=== PATIENT | female | born 1985 | race Caucasian/White ===

== ENCOUNTER 2018-05-11 01:50 | Emergency (ER) | payer OTHER ==
[2018-05-11 01:58] VITALS: BP 126/89
--- NOTE | 2018-05-11 02:00 | EDPHY ---
H & P Stated Complaint: Left leg pain gradually worsening since sun. 10 wks Time Seen by Provider: 05/11/18 01:59 HPI/ROS: HPI CHIEF COMPLAINT: Left calf pain. 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 No abnormal swelling. The calf pain has been present for 24 hr. She is concerned she may have a DVT. No history of DVT or P E. No history of underlying clotting disorder. Denies any injury. Denies chest pain or shortness of breath or pleuritic pain. Past Medical History: Denies medical history Past Surgical History: Denies surgical history Social History: He denies drugs alcohol tobacco. 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 Family History: Noncontributory ROS REVIEW OF SYSTEMS: 10 Systems were reviewed and negative with the exception of the elements mentioned in the history of present illness. Exam Constitutional appears well nontoxic no acute distress, triage nursing summary reviewed, vital signs reviewed, awake/alert. Eyes normal conjunctivae and sclera, EOMI, PERRLA. HENT normal inspection, atraumatic, moist mucus membranes, no epistaxis, neck supple/ no meningismus, no raccoon eyes. Respiratory clear to auscultation bilaterally, normal breath sounds, no respiratory distress, no wheezing. Cardiovascular rate normal, regular rhythm, no murmur, no edema, distal pulses normal. Gastrointestinal soft, non-tender, no rebound, no guarding, normal bowel sounds, no distension, no pulsatile mass. Genitourinary no CVA tenderness. Musculoskeletal left lower extremity neurovascular intact good distal pulse, good cap refill, no evidence of abnormal swelling. No significant tenderness on exam. no midline vertebral tenderness, full range of motion, no calf swelling, no tenderness of extremities, no meningismus, good pulses, neurovascularly intact. Skin pink, warm, & dry, no rash, skin atraumatic. Neurologic awake, alert and oriented x 3, AAOx3, moves all 4 extremities equally, motor intact, sensory intact, CN II-XII intact, normal cerebellar, normal vision, normal speech. Psychiatric normal mood/affect. Heme/Lymph/Immune no lymphadenopathy. Differential Diagnosis: Includes but is not limited to in a particular order DVT, Weller cyst, musculoskeletal strain, calf strain Medical Decision Making: Plan for this patient ultrasound left lower extremity. Rule out DVT. Re-evaluation: Ultrasound left lower extremity: Shows no evidence of DVT. Called to me by Dr. Oden. 0257: Updated patient. No evidence of DVT on ultrasound. Recommend warm compresses, anti-inflammatory pain medicine like Tylenol. Return if worsening pain, swelling, questions or concerns. Source: Patient - Personal History LMP (Females 10-55): EDC: 12/02/18 Current Tetanus Diphtheria and Acellular Pertussis (TDAP): Yes - Medical/Surgical History Hx Asthma: No Hx Chronic Respiratory Disease: No Hx Diabetes: No Hx Cardiac Disease: No Hx Renal Disease: No Hx Cirrhosis: No Hx Alcoholism: No Hx HIV/AIDS: No Hx Splenectomy or Spleen Trauma: No Other PMH: ACL surgery x 2, L ankle surgery - Social History Smoking Status: Never smoked Constitutional: Initial Vital Signs Temperature (C) 37 C 05/11/18 01:54 Heart Rate 80 05/11/18 01:54 Respiratory Rate 16 05/11/18 01:54 Blood Pressure 126/89 H 05/11/18 01:54 O2 Sat (%) 98 05/11/18 01:54 O2 Delivery Mode Room Air Allergies/Adverse Reactions: No Known Allergies Allergy (Unverified 05/11/18 01:54) Home Medications: Medication Instructions Recorded 05/11/18 Departure - Departure Disposition: Home, Routine, Self-Care Clinical Impression: Pain of left calf Condition: Good Instructions: Musculoskeletal Pain (ED) Additional Instructions: 1. Recommend warm compresses. 2. Recommend Tylenol. 3. Return if worsening symptoms. Referrals: NONE *PRIMARY CARE P,. [Primary Care Provider] - As per Instructions
== END 2018-05-11 03:09 | disposition home or self-care (01) ==
DX: M79.662 Pain in left lower leg (principal)

== ENCOUNTER → 2018-07-11 | Outpatient (CLI) | payer OTHER | LOC: FIMAGING 07:12 | PROVIDERS: ATTEND Obstetrics & Gynecology | DX: O99.282 Endocrine, nutritional and metabolic diseases complicating pregnancy, second trimester (principal); E03.9 Hypothyroidism, unspecified; Z3A.19 19 weeks gestation of pregnancy ==

== ENCOUNTER 2018-11-23 08:04 | Inpatient (IN) | payer OTHER ==
[2018-11-23] MEDS ORDERED: IBUPROFEN 600 MG TAB PO PRN (08:33)
[2018-11-23] MEDS ORDERED: OLIVE OIL 118 ML BTL MISC PRN (08:33)
[2018-11-23] MEDS ORDERED: MISOPROSTOL 200 MCG TAB PR PRN (08:33)
[2018-11-23] MEDS ORDERED: EPSOM SALT 454 GM TP PRN (08:33)
[2018-11-23] MEDS ORDERED: OXYTOCIN/RINGERS LACTATE 1,000 ML IV PRN (08:33)
[2018-11-23] MEDS ORDERED: PENICILLIN G POTASSIUM 5,000,000 UNIT in D5W 150 ML IV ONE (08:33)
[2018-11-23] MEDS ORDERED: LIDOCAINE 1% 300 MG/30 ML SDV SC PRN (08:33)
[2018-11-23 08:50] LABS: PLATELET COUNT 170 10^3/uL (150-400)
[2018-11-23] MEDS ORDERED: OXYTOCIN/RINGERS LACTATE 30 UNIT/500 ML BAG IV ONE (09:00)
[2018-11-23] MEDS: LR 1,000 ML IV PRN (09:22)
[2018-11-23] MEDS ORDERED: LR 500 ML IV PRN (09:52)
[2018-11-23] MEDS ORDERED: TERBUTALINE SULFATE 1 MG/ML VIAL ONE (10:00)
[2018-11-23] MEDS ORDERED: AMMONIA AROMATIC 1 EACH AMP IH ONE (10:00)
[2018-11-23] MEDS ORDERED: LIDOCAINE 1% 300 MG/30 ML SDV ONE (10:00)
[2018-11-23] MEDS ORDERED: OXYTOCIN/RINGERS LACTATE 500 ML IV SCH (10:00)
[2018-11-23] MEDS ORDERED: OLIVE OIL 118 ML BTL MISC ONE (10:00)
[2018-11-23] MEDS ORDERED: OXYTOCIN 10 UNIT/ML VIAL ONE (10:00)
[2018-11-23] MEDS ORDERED: MISOPROSTOL 200 MCG TAB ONE (10:01)
--- NOTE | 2018-11-23 10:45 | GHP ---
[f rep st] HISTORY AND PHYSICAL DATE OF ADMISSION: 11/23/2018 ADMISSION DIAGNOSIS: Intrauterine at 38-5/7 weeks' gestation and oligohydramnios. HISTORY OF PRESENT ILLNESS: The patient is a 33-year-old 2, para 0-0-1-0, who is 38-5/7 week s' gestation. Her estimated date of confinement is 12/02/2018, dated by a last menstrual period of 0 02/25/2018, consistent with a 1st-trimester ultrasound and the patient had a growth ultrasound yesterd ay for history of size greater than dates, an ultrasound which showed the baby to be in the 98th perc entile, however, TY was 5. Management options were reviewed with the patient and decision was made to proceed with an induction of labor for oligohydramnios past 37 weeks. The patient was examined in the office and she was 3 cm dilated, 80% effaced, and -2 station. The patient arrived this morning for Pitocin and induction of labor. status is reassuring. She has positive movement and no loss of fluid and no vaginal bleeding. She started having cramping. PAST MEDICAL HISTORY: Significant for history of migraines with aura, hypothyroidism. MEDICATIONS: vitamins, fish oil, magnesium and iron intake. She is also on levothyroxine 2 5 mcg. SURGICAL HISTORY: ACL repair x2, wisdom teeth extraction. ALLERGIES: No known drug allergies. SOCIAL HISTORY: Patient is . 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 She denies tobacco, a lcohol, or drug use. FAMILY MEDICAL HISTORY: Noncontributory. TEENAGE BABYSITTER HISTORY: Menarche age 13. Periods every 29-30 days and last 2-3 days. She is a 2, p haylee 0-0-1-0. In August 2017, she had either an early ectopic or a spontaneous . She was treated with methotrexate. However, imaging reviewed after the fact was suspicious of it jus t being a blighted ovum. Current has been uncomplicated with the exception of diagnosis of hypothyroidism in early , as well as 1 abnormal value on her glucose tolerance test, and ov erall normal blood sugars throughout the . She also had significant carpal tunnel syndrome throughout . The patient denies any history of any abnormal Pap smears or sexually transmit claudia diseases. REVIEW OF SYSTEMS: 10-point review of systems is negative. Positive movement. No loss of flu id. No vaginal bleeding. She denies any headache or changes in vision. PHYSICAL EXAMINATION: VITAL SIGNS: Stable. GENERAL APPEARANCE: Alert and oriented x3. MUSCULOSKE LETAL: Grossly intact. PSYCH: Grossly intact. NEURO: Grossly intact. HEART: Rate is regular. LUNGS: Clear to auscultation bilaterally. ABDOMEN: Gravid, nondistended, nontender. EXTREMITIES: Reveal no calf tenderness or edema. PELVIC: She was 3 cm dilated, 80% effaced, and -2 station. In ruben is in the vertex presentation. status is positive accelerations, no decelerations, and is reassuring. She is having contractions. LABS: Blood type B positive, antibody screen negative. Rubella immune. GBS positive. HBs Ag negative. HIV negative. Her 50 g glucose was 130. She had a repeat, which was 159. She had a 3 -hour glucose tolerance test which had 1 abnormal value, so she monitored her sugars during that. ASSESSMENT AND PLAN: A 33-year-old, 2, para 0-0-1-0, who is 38-5/7 weeks' gestation here for induction of labor of oligohydramnios. She has been started on Pitocin. She plans an epidural. /[id number]/MODL
--- NOTE | 2018-11-23 12:05 | OBPROG ---
Labor Progress Note Assessment/Plan: Assessment: Plan: Subjective/Intrapartum Course: 11/23/18 12:00 patient is doing well. pitocin is at 10 mu. feeling mild contractions. arom. small amount of clear fluid. second contraction after arom slightly stronger. status reassuring. Objective: 11/23/18 08:39 Patient ABO/Rh B POSITIVE 11/23/18 08:39 - SVE Dilation (cm): 3 Effacement (%): 80 Station: -2 Membranes: AROM Amniotic Fluid Color: Clear - Contraction Pattern Assessment Current Contraction Pattern: Irregular - FHR Assessment Felder FHR Pattern Variability: Moderate FHR Category: 1 - Procedures Non-surgical Procedures: Amniotomy - AP Antepartum Course: 11/23/18 12:01 care at [facility] in first trimester. dated by LMP equal to first trimester ultrasound. negative NIPT. diagnosed with hypothyroid in ,. started on levothyroxine. significant carpal tunnel in . efw 98%. elevated 50 gram. one abnormal value in 3 hour. has been checking sugars. most have been normal. Oxytocin Orders Assessment - Pre-Induction/Augmentation Assessment Gestational Age: 38 week(s) and 5 day(s) ICD10 Worksheet Patient Problems: Problems Problem Status Onset delivery delivered Acute Oligohydramnios Acute
[2018-11-23] MEDS: PENICILLIN G POTASSIUM 2,500,000 UNIT in D5W 150 ML IV SCH ×3 (13:28→21:17)
--- NOTE | 2018-11-23 13:58 | OBPROG ---
Labor Progress Note Assessment/Plan: Assessment: Plan: Subjective/Intrapartum Course: 11/23/18 12:00 patient is doing well. pitocin is at 10 mu. feeling mild contractions. arom. small amount of clear fluid. second contraction after arom slightly stronger. status reassuring. 11/23/18 13:57 patient breathing through contractions in the tub. status reassuring. regular contractions. pitocin is at 16 mu. considering an epidural. Objective: 11/23/18 08:39 Patient ABO/Rh B POSITIVE 11/23/18 08:39 - SVE Membranes: AROM Amniotic Fluid Color: Clear - Contraction Pattern Assessment Current Contraction Pattern: Regular - FHR Assessment Felder FHR Pattern Variability: Moderate FHR Category: 1 - Procedures Non-surgical Procedures: Amniotomy - AP Antepartum Course: 11/23/18 12:01 care at [facility] in first trimester. dated by LMP equal to first trimester ultrasound. negative NIPT. diagnosed with hypothyroid in ,. started on levothyroxine. significant carpal tunnel in . efw 98%. elevated 50 gram. one abnormal value in 3 hour. has been checking sugars. most have been normal. Oxytocin Orders Assessment - Pre-Induction/Augmentation Assessment Gestational Age: 38 week(s) and 5 day(s) ICD10 Worksheet Patient Problems: Problems Problem Status Onset Oligohydramnios Acute
[2018-11-23] MEDS ORDERED: PHENYLEPHRINE HCL 100 MCG/ML SYR ONE (15:16)
[2018-11-23] MEDS ORDERED: fentaNYL 2MCG/ML/BUP 0.1% RTU 100 ML BAG EP ONE (15:16)
[2018-11-23] MEDS ORDERED: BUPIVACAINE 0.25% 10 ML SDV ONE (15:16)
--- NOTE | 2018-11-23 15:47 | PREANESOB ---
Obstetric Pre-Anesthesia Info - General Info Proposed Procedure: HUMBERTO : 2 Para: 0 JENY: 12/02/18 Gestational Age: 38 week(s) and 5 day(s) - Info Status: Full Term - Labor Status Cervical Dilation per last OB SVE: 3 Station per last OB SVE: -2 Amniotic Fluid Color: Clear Indications for Labor Analgesia: Pain Control Labor Epidural: Proposed Anesthesia Allergies/Adverse Reactions: Allergy/AdvReac Type Severity Reaction Status Date / Time No Known Allergies Allergy Unverified 05/11/18 01:54 Home Medications: Medication Instructions Recorded 05/11/18 Visit Medications: Generic Name Dose Route Start Last Admin Trade Name Freq PRN Reason Stop Dose Admin Lactated Ringer's 1,000 mls @ 0 mls/hr 11/23/18 08:33 11/23/18 09:22 Lr IV 11/24/18 08:32 1,000 mls PRN PRN Administration SEE PROTOCOL CONDITIONS Protocol Per Protocol Oxytocin/Lactated Ringer's 1,000 mls @ 125 mls/hr 11/23/18 08:33 Pitocin 20 Units/Lr (Premix) IV PRN PRN Post bleeding Penicillin G Potassium 2,500, 155 mls @ 155 mls/hr 11/23/18 12:34 11/23/18 13 :28 000 unit/ Dextrose IV 12/23/18 12:33 155 mls Q4H TONG Administration Protocol Lactated Ringer's 500 mls @ 500 mls/hr 11/23/18 09:52 Lr IV 11/24/18 09:52 PRN PRN Maternal Hypotension Oxytocin/Lactated Ringer's 500 mls @ 0 mls/hr 11/23/18 10:00 11/23/18 09:30 Pitocin 30 Units/Lr (Premix) IV 05/22/19 09:59 500 mls CONT TONG Administration Protocol Per Protocol Ibuprofen 600 mg 11/23/18 08:33 Motrin PO ONCE PRN post , pain Lidocaine HCl 300 mg 11/23/18 08:33 Lidocaine Hcl 1% SC 05/22/19 08:32 ONCE PRN episiotomy Magnesium Sulfate 454 gm 11/23/18 08:33 Epsom Salt TP 05/22/19 08:32 Q1H PRN perineal discomfort Misoprostol 800 - 1,000 mcg 11/23/18 08:33 Cytotec [place] ONCE PRN Vaginal Atony/Bleeding Worcester Oil 118 ml 11/23/18 08:33 Sweet Oil MISC 05/22/19 08:32 ONCE PRN perineal massage Discontinued Medications Generic Name Dose Route Start Last Admin Trade Name Lauren PRN Reason Stop Dose Admin Ammonia (Aromatic Spirit) Confirm 11/23/18 10:00 Ammonia Aromatic Administered 11/23/18 10:01 Dose 1 each IH .STK-MED ONE Bupivacaine HCl Confirm 11/23/18 15:16 Sensorcaine 0.25% Sdv Administered 11/23/18 15:17 Dose 10 ml .ROUTE .STK-MED ONE Fentanyl/Bupivacaine HCl Confirm 11/23/18 15:16 Fentanyl/Bupivacaine/Ns 2 Mcg/Ml 0.1% (Premix Administered 11/23/18 15:17 Dose 100 ml EP .STK-MED ONE Penicillin G Potassium 5,000, 160 mls @ 160 mls/hr 11/23/18 08:33 11/23/18 09 :23 000 unit/ Dextrose IV 11/23/18 09:32 160 mls ONCE ONE Administration Protocol Lidocaine HCl Confirm 11/23/18 10:00 Lidocaine Hcl 1% Administered 11/23/18 10:01 Dose 300 mg .ROUTE .STK-MED ONE Misoprostol Confirm 11/23/18 10:01 Cytotec Administered 11/23/18 10:02 Dose 1,000 mcg .ROUTE .STK-MED ONE Worcester Oil Confirm 11/23/18 10:00 Sweet Oil Administered 11/23/18 10:01 Dose 118 ml MISC .STK-MED ONE Oxytocin Confirm 11/23/18 10:00 Pitocin Administered 11/23/18 10:01 Dose 40 unit .ROUTE .STK-MED ONE Oxytocin/Lactated Ringer's Confirm 11/23/18 09:00 Pitocin 30 Units/Lr (Premix) Administered 11/23/18 09:01 Dose 30 unit IV .STK-MED ONE Phenylephrine HCl Confirm 11/23/18 15:16 Neosynephrine Administered 11/23/18 15:17 Dose 1,000 mcg .ROUTE .STK-MED ONE Terbutaline Sulfate Confirm 11/23/18 10:00 Brethine Administered 11/23/18 10:01 Dose 1 mg .ROUTE .STK-MED ONE - Anesthesia History Response to Local Anesthetics: Normal Anesthesia & Operative History: No Prior Problems Family Anesthesia History: Negative - Vital Signs Height/Weight (Nursing): Height 160.02 cm Weight 90.718 kg - Focused Exam Neck exam: FROM Mallampati Score: Class 1 Mouth exam: normal dental/mouth exam Pulmonary: no respiratory distress Cardiovascular: regular rate and rhythym Labs: 11/23/18 08:39 Patient ABO/Rh B POSITIVE 11/23/18 08:39 - Plan Anesthetic Plan: HUMBERTO Consent Signed and on Chart: Yes Patient/Guardian Understands and Agrees to Plan: Yes Urgent/Emergent Case: Pricila stauffer completed preop but documented later for safe timely pt care
--- NOTE | 2018-11-23 16:43 | OBPROG ---
Labor Progress Note Assessment/Plan: Assessment: Plan: Subjective/Intrapartum Course: 11/23/18 12:00 patient is doing well. pitocin is at 10 mu. feeling mild contractions. arom. small amount of clear fluid. second contraction after arom slightly stronger. status reassuring. 11/23/18 13:57 patient breathing through contractions in the tub. status reassuring. regular contractions. pitocin is at 16 mu. considering an epidural. 11/23/18 16:29 patient was having contractions q 2 minutes so pitocin was turned down and then turned off as they continued to be q 2 minutes with no relaxation. patient received epidural. reexamined. patient is still 3 cm. IUPC placed. pitocin restarted. status reassuring. will reexaming in several hours after adequate contractions. Objective: 11/23/18 08:39 Patient ABO/Rh B POSITIVE 11/23/18 08:39 - SVE Dilation (cm): 3 Effacement (%): 80 Station: -2 Membranes: AROM Amniotic Fluid Color: Clear - Contraction Pattern Assessment Current Contraction Pattern: Regular - FHR Assessment Felder FHR Pattern Variability: Moderate FHR Category: 1 - Procedures Non-surgical Procedures: Amniotomy - AP Antepartum Course: 11/23/18 12:01 care at [facility] in first trimester. dated by LMP equal to first trimester ultrasound. negative NIPT. diagnosed with hypothyroid in ,. started on levothyroxine. significant carpal tunnel in . efw 98%. elevated 50 gram. one abnormal value in 3 hour. has been checking sugars. most have been normal. Oxytocin Orders Assessment - Pre-Induction/Augmentation Assessment Gestational Age: 38 week(s) and 5 day(s) ICD10 Worksheet Patient Problems: Problems Problem Status Onset Oligohydramnios Acute
--- NOTE | 2018-11-23 20:26 | OBPROG ---
Labor Progress Note Assessment/Plan: Assessment: Plan: Subjective/Intrapartum Course: 11/23/18 12:00 patient is doing well. pitocin is at 10 mu. feeling mild contractions. arom. small amount of clear fluid. second contraction after arom slightly stronger. status reassuring. 11/23/18 13:57 patient breathing through contractions in the tub. status reassuring. regular contractions. pitocin is at 16 mu. considering an epidural. 11/23/18 16:29 patient was having contractions q 2 minutes so pitocin was turned down and then turned off as they continued to be q 2 minutes with no relaxation. patient received epidural. reexamined. patient is still 3 cm. IUPC placed. pitocin restarted. status reassuring. will reexaming in several hours after adequate contractions. 11/23/18 20:24 patient feeling some cramping. pushed bolus button x 2. pitocin is at 14 mu. mvus 175. status reassuring. Will recheck in several hours after being adequate. 11/23/18 20:24 Objective: 11/23/18 08:39 Patient ABO/Rh B POSITIVE 11/23/18 08:39 - SVE Membranes: AROM Amniotic Fluid Color: Clear - Contraction Pattern Assessment Current Contraction Pattern: Regular - FHR Assessment Felder FHR Pattern Variability: Moderate FHR Category: 1 - Procedures Non-surgical Procedures: Amniotomy, IUPC - AP Antepartum Course: 11/23/18 12:01 care at [facility] in first trimester. dated by LMP equal to first trimester ultrasound. negative NIPT. diagnosed with hypothyroid in ,. started on levothyroxine. significant carpal tunnel in . efw 98%. elevated 50 gram. one abnormal value in 3 hour. has been checking sugars. most have been normal. Oxytocin Orders Assessment - Pre-Induction/Augmentation Assessment Gestational Age: 38 week(s) and 5 day(s) ICD10 Worksheet Patient Problems: Problems Problem Status Onset Oligohydramnios Acute
--- NOTE | 2018-11-23 23:02 | OBPROG ---
Labor Progress Note Assessment/Plan: Assessment: Plan: Subjective/Intrapartum Course: 11/23/18 12:00 patient is doing well. pitocin is at 10 mu. feeling mild contractions. arom. small amount of clear fluid. second contraction after arom slightly stronger. status reassuring. 11/23/18 13:57 patient breathing through contractions in the tub. status reassuring. regular contractions. pitocin is at 16 mu. considering an epidural. 11/23/18 16:29 patient was having contractions q 2 minutes so pitocin was turned down and then turned off as they continued to be q 2 minutes with no relaxation. patient received epidural. reexamined. patient is still 3 cm. IUPC placed. pitocin restarted. status reassuring. will reexaming in several hours after adequate contractions. 11/23/18 20:24 patient feeling some cramping. pushed bolus button x 2. pitocin is at 14 mu. mvus 175. status reassuring. Will recheck in several hours after being adequate. 11/23/18 20:24 11/23/18 22:56 patient still comfortable with epidural. Pitocin is at 20 mu. Mvu 140-170. have tried multiple position changes. sve 4-5/80/-2. status reassuring. will recheck in several hours. patient relieved she is making progress. Objective: 11/23/18 08:39 Patient ABO/Rh B POSITIVE 11/23/18 08:39 - SVE Dilation (cm): 4, 5 Effacement (%): 80 Station: -2 Membranes: AROM Amniotic Fluid Color: Clear - Contraction Pattern Assessment Current Contraction Pattern: Regular - FHR Assessment Eflder FHR Pattern Variability: Moderate FHR Category: 1 - Procedures Non-surgical Procedures: Amniotomy, IUPC - AP Antepartum Course: 11/23/18 12:01 care at [facility] in first trimester. dated by LMP equal to first trimester ultrasound. negative NIPT. diagnosed with hypothyroid in ,. started on levothyroxine. significant carpal tunnel in . efw 98%. elevated 50 gram. one abnormal value in 3 hour. has been checking sugars. most have been normal. Oxytocin Orders Assessment - Pre-Induction/Augmentation Assessment Gestational Age: 38 week(s) and 5 day(s) ICD10 Worksheet Patient Problems: Problems Problem Status Onset Oligohydramnios Acute
[2018-11-23] MEDS ORDERED: PHENYLEPHRINE HCL 100 MCG/ML SYR IVP PRN (23:05)
[2018-11-23] MEDS: fentaNYL 2MCG/ML/BUP 0.1% RTU 100 ML EP SCH (23:05)
[2018-11-23] MEDS ORDERED: NALOXONE HCL 0.4 MG/ML INJ IVP PRN (23:05)
[2018-11-23] MEDS ORDERED: ONDANSETRON 4 MG/2 ML VIAL IVP PRN (23:05)
[2018-11-23] MEDS ORDERED: fentaNYL 2MCG/ML/BUP 0.1% RTU 100 ML EP SCH (23:30)
[2018-11-23] MEDS ORDERED: LR 500 ML IV SCH (23:30)
[2018-11-24] MEDS ORDERED: ACETAMINOPHEN 500 MG TAB PO PRN (00:57)
[2018-11-24] MEDS: LR 1,000 ML IV PRN (00:59)
[2018-11-24] MEDS: PENICILLIN G POTASSIUM 2,500,000 UNIT in D5W 150 ML IV SCH ×4 (01:19→15:32)
--- NOTE | 2018-11-24 01:23 | OBPROG ---
Labor Progress Note Assessment/Plan: Assessment: Plan: Subjective/Intrapartum Course: 11/23/18 12:00 patient is doing well. pitocin is at 10 mu. feeling mild contractions. arom. small amount of clear fluid. second contraction after arom slightly stronger. status reassuring. 11/23/18 13:57 patient breathing through contractions in the tub. status reassuring. regular contractions. pitocin is at 16 mu. considering an epidural. 11/23/18 16:29 patient was having contractions q 2 minutes so pitocin was turned down and then turned off as they continued to be q 2 minutes with no relaxation. patient received epidural. reexamined. patient is still 3 cm. IUPC placed. pitocin restarted. status reassuring. will reexaming in several hours after adequate contractions. 11/23/18 20:24 patient feeling some cramping. pushed bolus button x 2. pitocin is at 14 mu. mvus 175. status reassuring. Will recheck in several hours after being adequate. 11/23/18 20:24 11/23/18 22:56 patient still comfortable with epidural. Pitocin is at 20 mu. Mvu 140-170. have tried multiple position changes. sve 4-5/80/-2. status reassuring. will recheck in several hours. patient relieved she is making progress. 11/24/18 01:20 patient still comfortable. was on hands and knees and multiple other positions. rn checked patient. 6-7/95/-2/ status reassuring. Objective: 11/23/18 08:39 Patient ABO/Rh B POSITIVE 11/23/18 08:39 - SVE Dilation (cm): 6, 7 Effacement (%): 90 Station: -2 Membranes: AROM Amniotic Fluid Color: Clear - Contraction Pattern Assessment Current Contraction Pattern: Regular - FHR Assessment Felder FHR Pattern Variability: Moderate FHR Category: 1 - Procedures Non-surgical Procedures: Amniotomy, IUPC - AP Antepartum Course: 11/23/18 12:01 care at [facility] in first trimester. dated by LMP equal to first trimester ultrasound. negative NIPT. diagnosed with hypothyroid in ,. started on levothyroxine. significant carpal tunnel in . efw 98%. elevated 50 gram. one abnormal value in 3 hour. has been checking sugars. most have been normal. Oxytocin Orders Assessment - Pre-Induction/Augmentation Assessment Gestational Age: 38 week(s) and 5 day(s) ICD10 Worksheet Patient Problems: Problems Problem Status Onset Oligohydramnios Acute
[2018-11-24] MEDS: fentaNYL 2MCG/ML/BUP 0.1% RTU 100 ML EP SCH (05:33)
--- NOTE | 2018-11-24 08:36 | OBPROG ---
Labor Progress Note Assessment/Plan: Assessment: Plan: Subjective/Intrapartum Course: 11/23/18 12:00 patient is doing well. pitocin is at 10 mu. feeling mild contractions. arom. small amount of clear fluid. second contraction after arom slightly stronger. status reassuring. 11/23/18 13:57 patient breathing through contractions in the tub. status reassuring. regular contractions. pitocin is at 16 mu. considering an epidural. 11/23/18 16:29 patient was having contractions q 2 minutes so pitocin was turned down and then turned off as they continued to be q 2 minutes with no relaxation. patient received epidural. reexamined. patient is still 3 cm. IUPC placed. pitocin restarted. status reassuring. will reexaming in several hours after adequate contractions. 11/23/18 20:24 patient feeling some cramping. pushed bolus button x 2. pitocin is at 14 mu. mvus 175. status reassuring. Will recheck in several hours after being adequate. 11/23/18 20:24 11/23/18 22:56 patient still comfortable with epidural. Pitocin is at 20 mu. Mvu 140-170. have tried multiple position changes. sve 4-5/80/-2. status reassuring. will recheck in several hours. patient relieved she is making progress. 11/24/18 01:20 patient still comfortable. was on hands and knees and multiple other positions. rn checked patient. 6-7/95/-2/ status reassuring. 11/24/18 08:33 patient complete and pushing. had temp to 100.1 got tylenol. pitocin has been at 24 mu. just increased to 26. status reassuring. patient having suprapubic pain and cramping which is interfering with her being able to push. just pushed bolus button. will try removing zamudio to see if bulb is contributing. Objective: 11/23/18 08:39 Patient ABO/Rh B POSITIVE 11/23/18 08:39 - SVE Dilation (cm): 10 Effacement (%): 100 Station: -1 Membranes: AROM Amniotic Fluid Color: Clear - Contraction Pattern Assessment Current Contraction Pattern: Regular - FHR Assessment Felder FHR Pattern Variability: Moderate FHR Category: 1 - Procedures Non-surgical Procedures: Amniotomy, IUPC - AP Antepartum Course: 11/23/18 12:01 care at [facility] in first trimester. dated by LMP equal to first trimester ultrasound. negative NIPT. diagnosed with hypothyroid in ,. started on levothyroxine. significant carpal tunnel in . efw 98%. elevated 50 gram. one abnormal value in 3 hour. has been checking sugars. most have been normal. Oxytocin Orders Assessment - Pre-Induction/Augmentation Assessment Gestational Age: 38 week(s) and 5 day(s) ICD10 Worksheet Patient Problems: Problems Problem Status Onset Oligohydramnios Acute
[2018-11-24] MEDS ORDERED: fentaNYL 100 MCG/2 ML INJ ONE ×4 (09:38→17:35)
[2018-11-24] MEDS ORDERED: CHLOROPROCAINE HCL 2% 400 MG/20 ML VIAL ONE (09:39)
[2018-11-24] MEDS ORDERED: AZITHROMYCIN IV 500 MG in NS 250 ML IV ONE (09:40)
[2018-11-24] MEDS ORDERED: ceFAZolin 2 GM/DEXTROSE 100 ML IV ONE ×2 (09:42→14:23)
[2018-11-24] MEDS ORDERED: LR 500 ML IV ONE (09:42)
--- NOTE | 2018-11-24 09:43 | OBPROG ---
Labor Progress Note Assessment/Plan: Assessment: Plan: Subjective/Intrapartum Course: 11/23/18 12:00 patient is doing well. pitocin is at 10 mu. feeling mild contractions. arom. small amount of clear fluid. second contraction after arom slightly stronger. status reassuring. 11/23/18 13:57 patient breathing through contractions in the tub. status reassuring. regular contractions. pitocin is at 16 mu. considering an epidural. 11/23/18 16:29 patient was having contractions q 2 minutes so pitocin was turned down and then turned off as they continued to be q 2 minutes with no relaxation. patient received epidural. reexamined. patient is still 3 cm. IUPC placed. pitocin restarted. status reassuring. will reexaming in several hours after adequate contractions. 11/23/18 20:24 patient feeling some cramping. pushed bolus button x 2. pitocin is at 14 mu. mvus 175. status reassuring. Will recheck in several hours after being adequate. 11/23/18 20:24 11/23/18 22:56 patient still comfortable with epidural. Pitocin is at 20 mu. Mvu 140-170. have tried multiple position changes. sve 4-5/80/-2. status reassuring. will recheck in several hours. patient relieved she is making progress. 11/24/18 01:20 patient still comfortable. was on hands and knees and multiple other positions. rn checked patient. 6-7/95/-2/ status reassuring. 11/24/18 08:33 patient complete and pushing. had temp to 100.1 got tylenol. pitocin has been at 24 mu. just increased to 26. status reassuring. patient having suprapubic pain and cramping which is interfering with her being able to push. just pushed bolus button. will try removing zamudio to see if bulb is contributing. 11/24/18 09:41 patient in excruciating pain in pubic symphysis and middle back. not able to push at all. discussion about options. she rebolused epidural with no improvement. discussed nitrous, having anesthesia rebolus epidural, and proceeding with a primary c section. patient wants to proceed with c section. anesthesia notified. consent signed. status reassuring. Objective: 11/23/18 08:39 Patient ABO/Rh B POSITIVE 11/23/18 08:39 - SVE Dilation (cm): 10 Effacement (%): 100 Station: -1 Membranes: AROM Amniotic Fluid Color: Clear - Contraction Pattern Assessment Current Contraction Pattern: Regular - FHR Assessment Felder FHR Pattern Variability: Moderate FHR Category: 1 - Procedures Non-surgical Procedures: Amniotomy, IUPC - AP Antepartum Course: 11/23/18 12:01 care at [facility] in first trimester. dated by LMP equal to first trimester ultrasound. negative NIPT. diagnosed with hypothyroid in ,. started on levothyroxine. significant carpal tunnel in . efw 98%. elevated 50 gram. one abnormal value in 3 hour. has been checking sugars. most have been normal. Oxytocin Orders Assessment - Pre-Induction/Augmentation Assessment Gestational Age: 38 week(s) and 5 day(s) ICD10 Worksheet Patient Problems: Problems Problem Status Onset Oligohydramnios Acute
[2018-11-24] MEDS ORDERED: ATROPINE SULFATE 1 MG/10 ML SYR ONE (09:54)
[2018-11-24] MEDS ORDERED: OXYTOCIN 100 UNITS/10 ML VIAL ONE (09:54)
[2018-11-24] MEDS ORDERED: PROPOFOL 200 MG/20 ML VIAL ONE (09:55)
[2018-11-24] MEDS ORDERED: METHYLERGONOVINE MAL 0.2 MG/ML INJ ONE ×4 (10:43→14:12)
[2018-11-24] MEDS ORDERED: HEMABATE 250 MCG/1 ML AMP IM ONE ×4 (10:46→13:00)
[2018-11-24] MEDS ORDERED: TRANEXAMIC ACID 1,000 MG/10 ML VIAL ONE (10:59)
[2018-11-24] MEDS ORDERED: *PREOP 1000MG*TRANEX ACID/NS 100 ML IV ONE (11:00)
[2018-11-24] MEDS ORDERED: DIPHENOXYLATE/ATROPINE LOMOTIL 1 TAB PO PRN (11:22)
[2018-11-24] MEDS ORDERED: PROMETHAZINE HCL 25 MG/ML INJ IVP PRN (11:23)
[2018-11-24] MEDS ORDERED: MAGNESIUM HYDROXIDE 30 ML UDCUP PO PRN (11:23)
[2018-11-24] MEDS ORDERED: LACTULOSE 20 GM/30 ML UDCUP PO PRN (11:23)
[2018-11-24] MEDS ORDERED: POLYETHYLENE GLYCOL 3350 17 GM PKT PO PRN (11:23)
[2018-11-24] MEDS ORDERED: BISACODYL 10 MG SUPP PR PRN (11:23)
[2018-11-24] MEDS ORDERED: MEPERIDINE 25 MG/0.5 ML AMP ONE (11:30)
[2018-11-24] MEDS ORDERED: OXYTOCIN/RINGERS LACTATE 1,000 ML IV SCH (11:30)
--- NOTE | 2018-11-24 11:40 | PDANEPAE ---
ANE History of Present Illness Called to OB for urgent C/S for failure to descend on induction with no previous medical history ANE Past Medical History - Cardiovascular History Hx Hypertension: No Hx Arrhythmias: No Hx Chest Pain: No Hx Coronary Artery / Peripheral Vascular Disease: No Hx CHF / Valvular Disease: No Hx Palpitations: No - Pulmonary History Hx COPD: No Hx Asthma/Reactive Airway Disease: No Hx Oxygen in Use at Home: No Hx Sleep Apnea: No - Endocrine History Hx Diabetes: No Hypothyroid: No Hyperthyroid: No - Renal History Hx Renal Disorders: No - Liver History Hx Hepatic Disorders: No - Neurological & Psychiatric Hx Hx Neurological and Psychiatric Disorders: No - Other Health History Other Health History: at 38 asnd 01/31 here for induction for presumed large baby and oligohydraminos. On PIT and had working epidural but started feeling pain this morning and asked to redose - Chronic Pain History Chronic Pain: No ANE Review of Systems Review of Systems: ANE Patient History - Allergies Allergies/Adverse Reactions: No Known Allergies Allergy (Unverified 05/11/18 01:54) - Home Medications Home Medications: 05/11/18 [Last Taken Unknown] - Smoking Hx Smoking Status: Never smoked ANE Labs/Vital Signs - Labs Result Diagrams: 11/23/18 08:39 - Vital Signs Height: 160.02 cm Weight: 90.718 kg ANE Physical Exam - Airway Neck exam: FROM Mallampati Score: Class 3 Mouth exam: normal dental/mouth exam - Pulmonary Pulmonary: no respiratory distress, no rales or rhonchi - Cardiovascular Cardiovascular: regular rate and rhythym, no murmur, rub, or gallop - ASA Status ASA Status: III ANE Anesthesia Plan Anesthesia Plan: spinal (Called in to bolus the epidural for C/S. Administered fent and chloroprocaine with very little relief. Discussed options and decided on spinal for primary C/S) Total IV Anesthesia: No
[2018-11-24] MEDS ORDERED: METOCLOPRAMIDE 10 MG/2 ML VIAL IVP PRN (11:43)
[2018-11-24] MEDS ORDERED: fentaNYL 100 MCG/2 ML INJ IVP PRN ×2 (11:43→16:14)
[2018-11-24] MEDS ORDERED: HYDROmorphONE/DILAUDID 1 MG/ML INJ IVP PRN (11:43)
[2018-11-24] MEDS ORDERED: PHENYLEPHRINE HCL 100 MCG/ML SYR IVP PRN (11:43)
[2018-11-24] MEDS ORDERED: MEPERIDINE 25 MG/0.5 ML AMP IVP PRN (11:43)
[2018-11-24] MEDS ORDERED: OXYCODONE/APAP 5/325 TAB PO PRN (11:43)
[2018-11-24] MEDS ORDERED: LABETALOL HCL 5 MG/ML 20 ML MDV IVP PRN (11:43)
--- NOTE | 2018-11-24 11:43 | POSTANESTH ---
Post Anesthetic Evaluation Cardiovascular Status: Normal, Stable, Other, See Comment (ST noted with hypertension after surgery. Presumed due to medication as all bleding stopped prior to close per surgery. HTN presumed effects of medication received per OB interop) Respiratory Status: Normal, Stable Level of Consciousness/Mental Status: Can Participate in Eval, Alert and Oriented Pain Control: Adequate, Prn Tx Ordered Nausea/Vomiting Control: Adequate, Prn Tx Ordered Complications Possibly Related to Anesthesia: None Noted (Patient denies HOPPER, palpitations, visual changes or chest discomfort. She is shaking uncontrollably despite 25mg demerol in post-op orders. Other than the shaking she is comfortable)
[2018-11-24] MEDS ORDERED: fentaNYL 100 MCG/2 ML INJ MISC ONE (11:50)
[2018-11-24] MEDS ORDERED: CHLOROPROCAINE HCL 2% 400 MG/20 ML VIAL NB ONE (11:51)
[2018-11-24] MEDS ORDERED: fentaNYL 2MCG/ML/BUP 0.1% RTU 100 ML EP SCH (12:00)
[2018-11-24] MEDS ORDERED: HYDROmorphONE/DILAUDID 6 MG/30 ML PCA IV PRN (13:17)
[2018-11-24] MEDS ORDERED: NALOXONE HCL 0.4 MG/ML INJ IVP PRN (13:17)
[2018-11-24] MEDS ORDERED: METHYLERGONOVINE MAL 0.2 MG/ML INJ IM ONE (14:23)
--- NOTE | 2018-11-24 14:39 | PDANEPAE ---
ANE History of Present Illness Post hemmorhage and large intrauterine clots. Asked to come bedside for sedation for manual extraction of clots ANE Past Medical History - Cardiovascular History Hx Hypertension: No Hx Arrhythmias: No Hx Chest Pain: No Hx Coronary Artery / Peripheral Vascular Disease: No Hx CHF / Valvular Disease: No Hx Palpitations: No - Pulmonary History Hx COPD: No Hx Asthma/Reactive Airway Disease: No Hx Oxygen in Use at Home: No Hx Sleep Apnea: No Sleep Apnea Screening Result - Last Documented: Negative - Endocrine History Hx Diabetes: No Hypothyroid: No Hyperthyroid: No - Renal History Hx Renal Disorders: No - Liver History Hx Hepatic Disorders: No - Neurological & Psychiatric Hx Hx Neurological and Psychiatric Disorders: No - Other Health History Other Health History: at 40 asnd 01/31 here for induction for presumed large baby and oligohydraminos. On PIT and had working epidural but started feeling pain this morning and asked to redose - Chronic Pain History Chronic Pain: No ANE Review of Systems Review of Systems: ANE Patient History - Allergies Allergies/Adverse Reactions: No Known Allergies Allergy (Unverified 05/11/18 01:54) - Home Medications Home Medications: 05/11/18 [Last Taken Unknown] - NPO status NPO Since - Liquids (Date): 11/24/18 NPO Since - Liquids (Time): 09:30 NPO Since - Solids (Date): 11/24/18 - Smoking Hx Smoking Status: Never smoked ANE Labs/Vital Signs - Labs Result Diagrams: 11/23/18 08:39 - Vital Signs Blood Pressure: 111/84 Respiratory Rate: 14 O2 Sat (%): 97 Height: 160.02 cm Weight: 90.718 kg ANE Physical Exam - Airway Neck exam: FROM Mallampati Score: Class 3 Mouth exam: normal dental/mouth exam - Pulmonary Pulmonary: no respiratory distress, no rales or rhonchi - Cardiovascular Cardiovascular: regular rate and rhythym, no murmur, rub, or gallop - ASA Status ASA Status: III, E ANE Anesthesia Plan Anesthesia Plan: GA with mask Total IV Anesthesia: Yes
--- NOTE | 2018-11-24 14:39 | POSTANESTH ---
Post Anesthetic Evaluation Cardiovascular Status: Normal, Stable Respiratory Status: Normal, Stable Level of Consciousness/Mental Status: Can Participate in Eval, Mildly Sleepy, Arousable Pain Control: Adequate, Prn Tx Ordered Nausea/Vomiting Control: Adequate, Prn Tx Ordered Complications Possibly Related to Anesthesia: None Noted
[2018-11-24] MEDS: fentaNYL 100 MCG/2 ML INJ IVP PRN ×2 (14:46→17:37)
[2018-11-24] MEDS: oxyCODONE IR 5 MG TAB PO PRN ×2 (14:58→19:25)
[2018-11-24] MEDS ORDERED: HYDROmorphONE/DILAUDID 2 MG/ML INJ IVP PRN (15:54)
[2018-11-24] MEDS ORDERED: KETOROLAC 30 MG/1 ML SDV ONE (16:26)
[2018-11-24] MEDS: KETOROLAC 30 MG/1 ML SDV IVP PRN ×2 (16:31→22:38)
--- NOTE | 2018-11-24 18:06 | OBPP ---
Progress Note Assessment/Plan: Assessment: I was called to the PACU to evaluate Litzy approximately 2 hours after we completed her section. At that time the nurses had had a recently fundal check with a large gush of approximately 200cc. Her uterus was tender and elevated to +2 and deviated to her left. Bedside US showed a large amount of clot and blood in the fundal aspect of the uterine cavity. Anesthesia paged and patient was given Propofol sedation. Bimanual performed with 500 of large organized clot removed, the right cornual region seeming more distended than the left, which was the case in the OR as well. All clot removed. Tomas in place. Gave additional doses of Methergine IM and Hemabate IM as well. US performed following bimanual that showed empty/contracted uterus. - Will hold NSAIDS for now. 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 - CBC now. - If further bleeding next step would be back to OR for D&C and Bakri placement. - Additional dose of 2g Ancef due to manipulation. Total EBL thus far: 1200 from OR, 200 from fundal check, 500 from my exam = 1900cc. Objective: 11/24/18 14:37 Patient ABO/Rh B POSITIVE 11/23/18 08:39 Temp Pulse Resp BP Pulse Ox 37.2 C 16 94/63 L 96 11/24/18 14:15 11/24/18 14:58 11/24/18 17:29 11/24/18 17:35 Uterine Position/Fundal Height: Umbilicus -2 Uterine Tone: Firm with Massage
[2018-11-24] MEDS: ACETAMINOPHEN 325 MG TAB PO SCH (19:54)
[2018-11-24] MEDS: LR 1,000 ML IV SCH (20:30)
[2018-11-25] MEDS: LR 1,000 ML IV SCH (00:56)
[2018-11-25] MEDS: ACETAMINOPHEN 325 MG TAB PO SCH ×5 (01:04→21:01)
[2018-11-25] MEDS: SENNOSIDES/DOCUSATE SODIUM TAB PO SCH ×3 (01:09→21:03)
[2018-11-25] MEDS: KETOROLAC 30 MG/1 ML SDV IVP PRN ×2 (04:34→10:07)
[2018-11-25] MEDS: oxyCODONE IR 5 MG TAB PO PRN ×4 (05:53→19:34)
[2018-11-25] MEDS: SIMETHICONE 80 MG TAB CHEW PO PRN ×2 (05:53→16:20)
[2018-11-25 06:35] LABS: PLATELET COUNT 106 10^3/uL (150-400)
--- NOTE | 2018-11-25 06:54 | PDPAINCON ---
Pain Management Consultation Patient referred by : Aamir - Subjective Pain is: under control Activity: able to ambulate - Objective Technique: continuous epidural (HUMBERTO converted for C/S (epidural fentanyl administered)) Catheter site: clean, dry, intact Sensory and motor exam: consistent with block (mild residual LLE weakness, improving) Vital signs: stable - Assessment/Plan Assessment/Plan: pain well-controlled, continue current mgmt (POD 1 s/p HUMBERTO converted for C/S. Patient did not receive epidural morphine. Her pain is well managed currently; may consider TAP blocks if uncontrolled.)
--- NOTE | 2018-11-25 08:44 | OBDEL ---
Info Type: Primary Presentation at Delivery: Vertex L&D Analgesia/Anesthesia Type: Epidural, Spinal GBS+: Yes Antibiotic Used for + GBS: Ampicillin Intrapartum Medications: Generic Name Dose Route Start Last Admin Trade Name Freq PRN Reason Stop Dose Admin Acetaminophen 1,000 mg 11/24/18 00:57 11/24/18 01:18 Tylenol PO 05/23/19 00:56 1,000 mg Q6 PRN Administration Pain, Mild/Fever, Can Take PO Acetaminophen 650 mg 11/24/18 14:23 11/25/18 08:00 Tylenol PO 05/23/19 14:22 650 mg Q6H TONG Administration Diphenoxylate HCl/Atropine 1 tab 11/24/18 11:22 11/24/18 13:04 Lomotil PO 05/23/19 11:21 1 tab QID PRN Administration Diarrhea/Loose Stools Fentanyl 50 mcg 11/24/18 14:40 11/24/18 17:37 Sublimaze IVP 12/04/18 14:39 50 mcg Q2HRS PRN Administration Pain, Severe Unable to Take PO Hydromorphone HCl 0 mg 11/24/18 13:17 11/24/18 13:34 Dilaudid Conference Planner IV 12/04/18 13:16 6 mg PRN PRN Administration Pain, Severe Unable to Take PO Protocol Oxytocin/Lactated Ringer's 500 mls @ 0 mls/hr 11/23/18 10:00 11/23/18 09:30 Pitocin 30 Units/Lr (Premix) IV 05/22/19 09:59 500 mls CONT TONG Administration Protocol Per Protocol Fentanyl/Bupivacaine HCl 100 mls @ 0 mls/hr 11/23/18 23:00 11/24/18 05:33 Fentanyl/Bupivacaine/Ns 2 Mcg/Ml 0.1% (Premix EP 12/03/18 22:59 100 mls CONT TONG Administration Protocol As Directed Lactated Ringer's 1,000 mls @ 125 mls/hr 11/24/18 10:00 11/25/18 00:56 Lr IV 11/25/18 09:59 1,000 mls CONT TONG Administration Ketorolac Tromethamine 30 mg 11/24/18 16:15 11/25/18 04:34 Toradol IVP 11/29/18 16:14 30 mg Q6HRS PRN Administration Pain, Moderate Oxycodone HCl 5 - 10 mg 11/24/18 11:23 11/25/18 05:53 Oxycodone Ir PO 12/04/18 11:22 5 mg Q4HRS PRN Administration Pain, Severe Able to Take PO Senna/Docusate Sodium 1 - 2 tab 11/24/18 21:00 11/25/18 01:09 Senokot-S PO 05/23/19 20:59 Not Given BID TONG Protocol Simethicone 80 mg 11/24/18 11:23 11/25/18 05:53 Mylicon PO 05/23/19 11:22 80 mg .TIDMEALS AND HS PRN Administration Gas Discontinued Medications Generic Name Dose Route Start Last Admin Trade Name Freq PRN Reason Stop Dose Admin Carboprost Tromethamine 250 mcg 11/24/18 13:00 11/24/18 13:45 Hemabate IM 11/24/18 13:01 250 mcg ONCE ONE Administration Chloroprocaine HCl 0 mg 11/24/18 11:51 11/24/18 20:05 Nesacaine-Mpf NB 11/24/18 11:52 Not Given ONCE ONE Fentanyl 100 mcg 11/24/18 11:50 11/24/18 20:11 Sublimaze MISC 11/24/18 11:51 Not Given ONCE ONE Fentanyl 25 - 100 mcg 11/24/18 16:14 11/24/18 16:21 Sublimaze IVP 11/24/18 17:15 50 mcg Q5M PRN Administration PACU, IMMEDIATE Pain control Hydromorphone HCl 0.2 - 0.4 mg 11/24/18 11:43 11/24/18 12:16 Dilaudid IVP 11/24/18 12:43 0.2 mg Q10M PRN Administration Pain, Severe Unable to Take PO Hydromorphone HCl 0.1 - 0.4 mg 11/24/18 15:54 11/24/18 16:06 Dilaudid IVP 11/24/18 16:54 0.2 mg Q10M PRN Administration PACU, PAIN Lactated Ringer's 1,000 mls @ 0 mls/hr 11/23/18 08:33 11/24/18 00:59 Lr IV 11/24/18 08:32 1,000 mls PRN PRN Administration SEE PROTOCOL CONDITIONS Protocol Per Protocol Oxytocin/Lactated Ringer's 1,000 mls @ 125 mls/hr 11/23/18 08:33 11/24/18 12: 00 Pitocin 20 Units/Lr (Premix) IV 1,000 mls PRN PRN Administration Post bleeding Penicillin G Potassium 5,000, 160 mls @ 160 mls/hr 11/23/18 08:33 11/23/18 09 :23 000 unit/ Dextrose IV 11/23/18 09:32 160 mls ONCE ONE Administration Protocol Penicillin G Potassium 2,500, 155 mls @ 155 mls/hr 11/23/18 12:34 11/24/18 15 :32 000 unit/ Dextrose IV 12/23/18 12:33 Not Given Q4H TONG Protocol Azithromycin 500 mg/ Sodium 255 mls @ 255 mls/hr 11/24/18 09:40 11/24/18 19: 53 Chloride IV 11/24/18 10:39 Not Given ONCE ONE Protocol Cefazolin Sodium/Dextrose 100 mls @ 200 mls/hr 11/24/18 09:42 11/24/18 09:53 Ancef IV 11/24/18 10:11 100 mls ONCALL ONE Administration Protocol Lactated Ringer's 500 mls @ 0 mls/hr 11/24/18 09:42 11/25/18 01:07 Lr IV 11/24/18 09:43 Not Given ONCE ONE As Directed Tranexamic Acid 1,000 mg/ 110 mls @ 660 mls/hr 11/24/18 11:00 11/25/18 01:08 Sodium Chloride IV 11/24/18 11:09 Not Given ONCALL ONE Cefazolin Sodium/Dextrose 100 mls @ 200 mls/hr 11/24/18 14:23 11/24/18 14:45 Ancef IV 11/24/18 14:52 100 mls ONCE ONE Administration Protocol Meperidine HCl 12.5 - 25 mg 11/24/18 11:43 11/24/18 11:45 Demerol IVP 11/24/18 12:43 25 mg Q10M PRN Administration shivering/rigors Methylergonovine Maleate 0.2 mg 11/24/18 14:23 11/24/18 14:14 Methergine IM 11/24/18 14:24 0.2 mg ONCE ONE Administration - Hospital Course Intrapartum: 11/23/18 12:00 patient is doing well. pitocin is at 10 mu. feeling mild contractions. arom. small amount of clear fluid. second contraction after arom slightly stronger. status reassuring. 11/23/18 13:57 patient breathing through contractions in the tub. status reassuring. regular contractions. pitocin is at 16 mu. considering an epidural. 11/23/18 16:29 patient was having contractions q 2 minutes so pitocin was turned down and then turned off as they continued to be q 2 minutes with no relaxation. patient received epidural. reexamined. patient is still 3 cm. IUPC placed. pitocin restarted. status reassuring. will reexaming in several hours after adequate contractions. 11/23/18 20:24 patient feeling some cramping. pushed bolus button x 2. pitocin is at 14 mu. mvus 175. status reassuring. Will recheck in several hours after being adequate. 11/23/18 20:24 11/23/18 22:56 patient still comfortable with epidural. Pitocin is at 20 mu. Mvu 140-170. have tried multiple position changes. sve 4-5/80/-2. status reassuring. will recheck in several hours. patient relieved she is making progress. 11/24/18 01:20 patient still comfortable. was on hands and knees and multiple other positions. rn checked patient. 6-7/95/-2/ status reassuring. 11/24/18 08:33 patient complete and pushing. had temp to 100.1 got tylenol. pitocin has been at 24 mu. just increased to 26. status reassuring. patient having suprapubic pain and cramping which is interfering with her being able to push. just pushed bolus button. will try removing zamudio to see if bulb is contributing. 11/24/18 09:41 patient in excruciating pain in pubic symphysis and middle back. not able to push at all. discussion about options. she rebolused epidural with no improvement. discussed nitrous, having anesthesia rebolus epidural, and proceeding with a primary c section. patient wants to proceed with c section. anesthesia notified. consent signed. status reassuring. Indications for Delivery: Oligohydramnios Vaginal Delivery - Labor and Delivery Onset of Contractions Date: 11/23/18 Onset of Contractions Time: 10:30 Amniotic Fluid Color: Clear Non-surgical Procedures: Amniotomy, IUPC Operative Report - Delivery Pre-op Diagnoses: IUP 38 6/7 weeks, oligohydramnios, arrest of descent, pain managment issues Post-op Diagnoses: same as preop plus post atony and hemorrhage, occiput posterior and nuchal cord History of Prior Section: No Nulliparous Prior to Delivery: Yes Indications for Current Section: Arrest of Descent Procedure: Unscheduled, Low Transverse Surgeon: Meghan Lester Pill Machine Operator: Josue Rutledge Anesthesiologist: Nayely Kowalski Complications: Nucal Cord, Post Hemorrhage EBL: 1200 [place] Data JENY: 12/02/18 Gestational Age: 39 week(s) and 0 day(s) Felder Delivery Date: 11/24/18 Delivery Time: 10:39 Sex of : Female Weight (gm): 3765 kg Score (1 Min): 8 Score (5 Min): 8 ICD10 Worksheet Patient Problems: Problems Problem Status Onset Oligohydramnios Acute
--- NOTE | 2018-11-25 10:01 | OBPP ---
Progress Note Assessment/Plan: Assessment: 1) 33 y/o G1 now P2 s/p 1LTCS secondary to arrest of descent POD #1 - pt is stable 2) PPH secondary to uterine atony - bleeding is appropriate 3) Anemia - pt is asymptomatic Plan: Continue routine post-op care Will discontinue Dilaudid CAMPUS REP and start po meds as ordered Will start iron, pt wants to taker her own Plan to discontinue zamudio since good UO this am and also discontinue IV this am Encourage ambulation May take shower later and remove dressing support prn Plan for d/c home in 48 hours 11/25/18 10:20 Subjective/ Course: 11/25/18 10:15 Pt seen and examined. She is sitting in the rocking chair and states pain is much better controlled and not using CAMPUS REP at this time. She has been getting Toradol. Pt is able to get OOB without feeling dizzy or lightheaded. She is gladys regular diet, zamudio in place, and no flatus yet. Denies any f/c/n/v/CP or SOB. Endorses lower extremity swelling, but no calf tenderness. Minimal lochia. Notes a small, tender "bump" right below umbilicus. BF is going well so far. Objective: 11/25/18 05:21 Patient ABO/Rh B POSITIVE 11/23/18 08:39 Temp Pulse Resp BP Pulse Ox 36.4 C 89 16 92/54 L 94 11/25/18 08:00 11/25/18 08:00 11/25/18 08:00 11/25/18 08:00 11/25/18 08:00 Uterine Position/Fundal Height: Umbilicus -2 Uterine Tone: Firm Physical Exam - Physical Exam General Appearance: WD/WN, alert, no apparent distress Respiratory: lungs clear, normal breath sounds Cardiac/Chest: regular rate, rhythm Abdomen: normal bowel sounds, soft, distended (mild), incision (C/D/I with dressing in place), dressing (C/D/I without shadowing), other (Small, 1 cm tender mass noted right below umbilicus: ?hernia-not able to be reduced; no ecchymosis) Extremities: non-tender, pedal edema Skin: warm/dry, pallor Neuro/Psych: alert, normal mood/affect, oriented x 3
--- NOTE | 2018-11-25 10:25 | GOP ---
[f rep st] OPERATIVE REPORT DATE OF OPERATION: 11/24/2018 SURGEON: Meghan Lester DO TRANSFER STATION ATTENDANT: Dr. Rutledge. ANESTHESIA: Spinal. ANESTHESIOLOGIST: Adenike Kowalski DO PREOPERATIVE DIAGNOSIS: Intrauterine at 38 and 6/7 weeks' gestation, group beta strep cult ure positive, arrest of descent, pain management issues. POSTOPERATIVE DIAGNOSIS: Intrauterine at 38 and 6/7 weeks' gestation, group beta strep cul ture positive, arrest of descent, pain management issues, atony, hemorrhage, ba by occiput posterior, nuchal cord x1. PROCEDURE PERFORMED: FINDINGS: Viable 8 pounds 3 ounce female in the occiput posterior presentation, delivered at 10:39 a.m. Apgars were 8 and 8. Normal ovaries uterus and tubes, and intact placenta with 3-vessel cord, atony. ESTIMATED BLOOD LOSS: 1200 cc. INDICATIONS: Patient is 33-year-old, 2, para 0-0-1-0 who has had routine care with [facility] since the 1st trimester. Patient has been following her blood sugars as she had a suspected large for gestational age baby and had an abnormal 50 g glucose, but only 1 abnormal nasir ue on her 3 hour glucose tolerance test. Her sugars have been well controlled in the . She had a growth ultrasound for this suspected large for gestational age at 39 weeks and 5 days. Baby w as noted to be in the 98 percentile, but amniotic fluid index was 5 cm. Management options were revi ewed with the patient. Decision was made to proceed to bring the patient in for induction of labor f or oligohydramnios. The patient was 3 cm dilated on arrival. She was started on Pitocin. Membranes were artificially ruptured. She requested and received an epidural, which for most of the labor pro vided adequate pain relief. An intrauterine pressure catheter was then placed and the patient has pr ogressed to complete dilation. When we tried to begin pushing, patient had significant pain superior to her pubic symphysis and in her spine. She was not able to effectively push. status remain ed reassuring. Management options were reviewed with the patient. Patient is in excruciating pain. We had attempted to be re-bolusing her epidural multiple times. We offered having Anesthesia re-arlyn us or place her epidural, nitrous oxide, or proceeding with a primary section as the baby's head was still very high. Patient elected to proceed with a primary section. Risks and lynda efits were reviewed with the patient and the patient was properly consented. DESCRIPTION OF PROCEDURE: Patient was taken to the operating room with intravenous fluids in place. A Tomas catheter was already in place. Her epidural was not working well after re-bolus, so she was received spinal which provided adequate pain relief. She was then placed on the operating room tabl e in the dorsal supine position with a leftward tilt and prepped and draped in the normal sterile fas hion. Anesthesia was assessed and found to be adequate. A Pfannenstiel skin incision was then made 2 fingerbreadths above the pubic symphysis. The incision was then carried through to the underlying layer of fascia with the Bovie. The fascia was then nicke d in the midline and the fascial incision was extended laterally. The superior aspect of the fascial incision was then grasped with a Placido, tented up, and the underlying rectus muscle dissected off b luntly with the Bovie. Attention was then turned to the inferior aspect of the fascial incision, whi ch in a similar fashion was grasped with a Placido, tented up, and the underlying rectus muscle dissec claudia off bluntly and with the Bovie. The rectus muscle was then in the midline. The perito neum was identified, tented up, and entered sharply with the Metzenbaum scissors. The incision was e xtended superiorly and inferiorly with excellent visualization of the bladder. The bladder blade was then inserted. The vesicouterine peritoneum was identified, tented up, and entered sharply with the Metzenbaum scissors. The incision was extended laterally and the bladder flap was created digitally . The bladder blade was then reinserted. The uterus was then incised in low transverse fashion with the scalpel. The uterine incision was ext ended laterally. The infant's head was then delivered through the incision. It was noted to be in t he occiput posterior presentation and nuchal cord x1 was delivered at the time of delivery. The viab le 8 pounds 3 ounce was delivered without difficulty. Delayed cord clamping x1 minute was per formed. The cord was then clamped x2 and cut, and cord blood was obtained, and the was handed off to a waiting nurse practitioner. The intact placenta with 3-vessel cord delivered without difficulty. The uterus was then exteriorize d and cleared of all clots and debris and wrapped in a moist laparotomy sponge. Pitocin was started. The tone was noted to be decreased. The bladder blade was then reinserted. The uterine incision w as closed with 0 Vicryl stitch in a running locked fashion. A second 0 Vicryl stitch was used to imb ricate the uterine incision. Patient was given a dose of Methergine, a dose of Hemabate, 1000 mcg of Cytotec per rectum, and tranexamic acid. Her tone did improve, but not to complete normal tone, but bleeding was noted to be minimal. The uterus was then cleared of all clots and debris and the uteru s was returned to the patient's abdomen. The hysterotomy remained hemostatic. Peritoneum was reapproximated with 3-0 Vicryl in a running fashion. Rectus muscle was reapproximated with 2-0 Vicryl in a running fashion. The fascia was closed with 0 Vicryl in a running fashion. Sc arpa's tissue was reapproximated with 2-0 Vicryl in a running fashion. Subcuticular tissue was reapp roximated with 3-0 Vicryl in a running fashion. Following completion of the procedure, uterus was co ude for a moderate amount of clots. An internal bimanual exam was performed and a sweep, and the lucy artie was cleared of all clots. The tone was noted to be normal. Patient was then returned to the bridger delmi supine position where she was then transferred to recovery room in stable condition. Sponge, lap , and needle count correct x2. Patient was transported to recovery room in stable condition. /[id number]/MODL
[2018-11-25] MEDS ORDERED: FERRO-SEQUELS 65 MG TAB.ER PO SCH (21:00)
[2018-11-25] MEDS: IBUPROFEN 600 MG TAB PO PRN (22:00)
[2018-11-26] MEDS: ACETAMINOPHEN 325 MG TAB PO SCH ×2 (03:53→09:18)
[2018-11-26] MEDS: SIMETHICONE 80 MG TAB CHEW PO PRN (06:00)
[2018-11-26] MEDS: IBUPROFEN 600 MG TAB PO PRN ×2 (06:00→11:41)
[2018-11-26 09:22] VITALS: BP 92/49
--- NOTE | 2018-11-26 09:57 | OBPP ---
Progress Note Assessment/Plan: Assessment: 33 y/o POD #2 s/p LTCS secondary to arrest of descent Plan: Will re check Hct again today to ensure it is stable and to dose Po iron supplementation post . She desires to d/c home today. Will give Rx Ibuprofen, and Oxy and instructions to call for fever, heavy vaginal bleeding, incision issues or mastitis. Follow-up @ [facility] 2, 4 and 6 weeks. 11/26/18 09:57 Subjective/ Course: 11/25/18 10:15 Pt seen and examined. She is sitting in the rocking chair and states pain is much better controlled and not using RAILW[employer]ARD ASSIST[employer] at this time. She has been getting Toradol. Pt is able to get OOB without feeling dizzy or lightheaded. She is gladys regular diet, zamudio in place, and no flatus yet. Denies any f/c/n/v/CP or SOB. Endorses lower extremity swelling, but no calf tenderness. Minimal lochia. Notes a small, tender "bump" right below umbilicus. BF is going well so far. 11/26/18 09:49 Pt is doing well this am. She denies dizziness, lightheadness and is walking without difficulty. She has good pain control with PO Tylenol, Ibuprofen and Oxy and hasn't needed Oxy since last pm. She has min lochia. Baby is doing well and cluster feeding, her nipples are somewhat sore, but she is using lanolin. She feels ready to d/c home tonight and is aware of precautions of when to call. Objective: 11/25/18 05:21 Patient ABO/Rh B POSITIVE 11/23/18 08:39 Temp Pulse Resp BP Pulse Ox 36.4 C 89 16 92/49 L 96 11/26/18 09:00 11/26/18 09:00 11/26/18 09:00 11/26/18 09:00 11/26/18 09:00 Uterine Position/Fundal Height: Umbilicus -2 Uterine Tone: Firm Physical Exam - Physical Exam General Appearance: alert, no apparent distress Neck: non-tender, full range of motion, supple Respiratory: chest non-tender, lungs clear, normal breath sounds Cardiac/Chest: regular rate, rhythm Abdomen: normal bowel sounds, incision (c/d/i) Extremities: swelling (No), Curly's sign (neg)
== END 2018-11-26 13:30 | disposition home or self-care (01) | DRG 787 ==
LOC: FLD 08:04 → FOB 11-25 12:00
PROVIDERS: ADMIT Obstetrics & Gynecology; ATTEND Obstetrics & Gynecology
PROC: 3E033VJ Introduction of Other Hormone into Peripheral Vein, Percutaneous Approach (ICD-10-PCS; 2018-11-23)
PROC: 10D00Z1 Extraction of Products of Conception, Low, Open Approach (ICD-10-PCS; principal; 2018-11-24)
PROC: 10907ZC Drainage of Amniotic Fluid, Therapeutic from Products of Conception, Via Natural or Artificial Opening (ICD-10-PCS; principal; 2018-11-24)
DX: O62.1 Secondary uterine inertia (principal); O41.03X0 Oligohydramnios, third trimester, not applicable or unspecified; O72.1 Other immediate postpartum hemorrhage; Z37.0 Single live birth; Z3A.38 38 weeks gestation of pregnancy; O99.824 Streptococcus B carrier state complicating childbirth; O69.82X0 Labor and delivery complicated by other cord entanglement, without compression, not applicable or unspecified
CPT/HCPCS: J0456; J0461; J0690; J1170; J1885; J2175; J2210; J2370; J2400; J2540; J2590; J2704; J3010; J3105